=== PATIENT | male | born 1995 | race Caucasian/White ===

== ENCOUNTER 2017-01-04 07:31 | Emergency (ER) | payer BC ==
[~2017-01-04] VITALS: Ht 175.3 cm; Wt 103.5 kg
[2017-01-04 07:38] VITALS: TEMP 37.2; Ht 175.3 cm; Wt 103.5 kg
[2017-01-04 08:20] VITALS: BP 137/76; PULSE 90; O2SAT 98
--- NOTE | 2017-01-04 17:28 | EMERGENCY ROOM VISIT NOTE ---
History First contact with patient: 07:33 Chief Complaint: SORETHROAT Stated Complaint: BACK OF THROAT INFLAMMED History of Present Illness The patient is a 21 year old male who presents to the Emergency Room with complaints of swelling of his uvula. Patient noticed it this morning. He states he was out drinking last night and then went to a friend's house and ate hot pockets. He believes they were very hot in temperature. He denies eating anything spicy or unusual. He denies any other trauma to his mouth. No other complaints. He denies any shortness of breath or difficulty swallowing. He does have a sore throat. No known ill contacts. He denies any other cold symptoms. A male friend accompanies him today. No treatment yet. No prior history of similar episode. Review of Systems REVIEW OF SYSTEM: HEENT: No dizziness, visual problems, hearing loss, or tinnitus. There is no difficulty swallowing and no oral lesions are present. PULMONARY: No cough, shortness of breath, sputum production or hemoptysis. CARDIOVASCULAR: No chest pain, palpitations, shortness of breath or peripheral edema. GASTROINTESTINAL: No diarrhea, constipation, nausea, vomiting, or abdominal pain. GENITOURINARY: No dysuria, frequency, urgency or nocturia. NEUROLOGIC: No weakness, muscle tenderness, epilepsy or history of neurological problems. MUSCULOSKELETAL: No history of joint tenderness/swelling. No history of arthritis or arthralgias. SKIN: No rashes or lesions. PSYCHIATRIC: No history of depression or mental illness. ENDOCRINE: No history of diabetes, thyroid disorders, or abnormal hair growth. Past Medical/Surgical History Previous surgeries: None Medical history: Significant for reflux Family History Unremarkable. Parents are living. Social History Smoking Status: Current Every Day Smoker Smokeless Tobacco Use: No Alcohol Use: occasionally Drug Use: none Marital Status: single Housing Status: lives with family Occupation Status: unemployed, [employer] student Current/Historical Medications No Active Prescriptions or Reported Meds Allergies Coded Allergies: No Known Allergies (Unverified , 01/04/17) Physical Exam Vital Signs Date Time Temp Pulse Resp B/P Pulse Ox O2 Delivery O2 Flow Rate FiO2 01/04/17 08:20 90 20 137/76 98 01/04/17 07:47 Room Air 01/04/17 07:38 37.2 103 18 149/80 96 Room Air Pain Rating (0-10): 0 Physical Exam Gen.: Well-developed, well-nourished, young male, in no acute distress. Sitting on a bed. Alert and oriented. Skin:Warm and dry with good turgor. No rashes or lesions. No ecchymosis or erythema. The patient is not diaphoretic. No abrasions. HEENT: Normocephalic atraumatic. Eyes PERRLA, EOMI. No conjunctiva or scleral injection. Ears TMs intact bilaterally with good light reflexes. No erythema or bulging. No hemotympanum. Canals are patent. Nares patent bilaterally without turbinate enlargement. No significant drainage. No epistaxis. Oropharynx without erythema or exudate. Uvula midline, it is edematous. There appears to be a blister over the inferior apex. It is not blocking the airway. Oral mucosa moist. No lesions present. Lymphatics are palpated without anterior or posterior chain enlargement or tenderness. Heart: Heart RRR. No MGR. No carotid bruit. Peripheral pulses are 2+. Lungs: Lungs are clear to auscultation. No crackles rhonchi or wheezing. Good air movement. The patient is able to take a deep breath. Medical Decision & Procedures Laboratory Results Rapid strep obtained today was negative. Back up cultures were sent. ED Course Patient and his brother were educated regarding today's findings. Conservative care measures were discussed. Likelihood of a thermal burn was discussed. He may treat this with oral anti-inflammatories as well as cold liquids and ice/ popsicles. This should resolve within a few days. Option of prednisone treatment was discussed. He declined at this point. Return to the ED for any worsening of symptoms. He is aware of what to look for. Medical Decision Possibility of thermal burn, chemical burn, allergic reaction, and infection were considered. Impression Primary Impression: Uvulitis Departure Information Dispostion Home / Self-Care Condition GOOD Prescriptions No Active Prescriptions or Reported Meds Forms HOME CARE DOCUMENTATION FORM, MOTRIN USE, TYLENOL USE, IMPORTANT VISIT INFORMATION Patient Instructions [facility], ED Uvulitis Additional Instructions Tylenol and Motrin every 6 hours as needed for mild discomfort Ice chips/popsicle/ice cream/cold drinks will improve your comfort and decreased swelling Avoid any very hot liquids or foods until swelling has resolved Return to the ED for any worsening of symptoms, including difficulty swallowing or breathing
== END 2017-01-04 08:41 | disposition home or self-care (01) ==
LOC: C.EDB 07:34
DX: K12.2 Cellulitis and abscess of mouth (principal); K21.9 Gastro-esophageal reflux disease without esophagitis; F17.210 Nicotine dependence, cigarettes, uncomplicated